=== PATIENT | female | born 1955 | race Caucasian/White ===

== ENCOUNTER → 2020-12-18 | Outpatient (CLI) | payer MEDICARE, MEDICAID ==
[~2020-12-18] MED LIST: LEVOXYL100 MCG PO; LISINOPRIL40 MG PO; PAROXETINE20 MG PO
== END | disposition home or self-care (01) ==
LOC: COVID19 12:32
PROVIDERS: ATTEND Internal Medicine
DX: Z20.822 Contact with and (suspected) exposure to COVID-19 (principal)

== ENCOUNTER → 2021-03-11 | Outpatient (CLI) | payer MEDICARE, MEDICAID | END | disposition home or self-care (01) | LOC: COVID19 10:05 | PROVIDERS: ATTEND Ophthalmology | DX: Z01.812 Encounter for preprocedural laboratory examination (principal); Z20.822 Contact with and (suspected) exposure to COVID-19 ==

== ENCOUNTER → 2021-03-13 | Day surgery (SDC) | payer MEDICARE, MEDICAID ==
[~2021-03-13] VITALS: Ht 177.8 cm; Wt 86.2 kg
[2021-03-13 11:20] VITALS: BP 146/73
[2021-03-13 12:28] VITALS: BP 148/82
[2021-03-13 12:45] VITALS: BP 153/92
[2021-03-13 12:57] VITALS: BP 145/65
== END | disposition home or self-care (01) ==
LOC: SDC 03-08 13:15
PROVIDERS: ATTEND Ophthalmology
DX: H25.11 Age-related nuclear cataract, right eye (principal); I10 Essential (primary) hypertension; F17.210 Nicotine dependence, cigarettes, uncomplicated; J44.9 Chronic obstructive pulmonary disease, unspecified; Z98.890 Other specified postprocedural states; Z79.899 Other long term (current) drug therapy; Z79.01 Long term (current) use of anticoagulants; Z88.0 Allergy status to penicillin